=== PATIENT | male | born 1960 | race Two or more races ===

== ENCOUNTER → 2024-05-18 | Outpatient (CLI) | payer OTHER, SELFPAY ==
[2024-05-18 08:37] LABS: Basophils % (Auto) 1 % (0-2.5); Eosinophils # (Auto) 0.1 Thou/mm3 (0.0-0.5); Eosinophils % (Auto) 2 % (0-10); Hematocrit 40.8 % (41.0-53.0); Hemoglobin 13.2 g/dL (13.5-16.0); Immature Granulocytes % (Auto) 0 % (0-0); Immature Granulocytes Auto 0.02 Thou/mm3 (0.00-0.00); Lymphocytes # (Auto) 1.8 Thou/mm3 (1.0-4.8); Lymphocytes % (Auto) 28 % (10-50); Mean Corpuscular HGB Conc 32.4 g/dl (31.0-37.0); Mean Corpuscular Hemoglobin 26.6 pg (25.0-35.0); Mean Corpuscular Volume 82 fL (80-100); Monocytes # (Auto) 0.6 Thou/mm3 (0.0-0.8); Monocytes % (Auto) 9 % (0-12); Neutrophils % (Auto) 61 % (37-80); Nucleated Red Blood Cell % 0 /100 WBC (0); Platelet Count 176 Thou/mm3 (140-440); RDW Standard Deviation 44.9 fL (35.1-43.9); Red Blood Count 4.96 Miln/mm3 (4.50-5.90); White Blood Count 6.6 Thou/mm3 (3.8-10.6)
[2024-05-18 08:44] LABS: Glucose Estimated Average 197 mg/dL (80-131); Hemoglobin A1C 8.5 % Hgb (4.8-6.0)
[2024-05-18 08:54] LABS: Folate 18.19 ng/mL (>5.38); Vitamin B12 259 pg/mL (211-911); Vitamin D 25 Hydroxy Total 36.8 ng/mL (7.3-40.2)
[2024-05-18 08:56] LABS: Parathyroid Hormone Intact 56.9 pg/ml (18.5-88.0)
[2024-05-18 09:03] LABS: Alanine Aminotransferase 16 U/L (10-49); Albumin, Serum 4.4 gm/dL (3.4-4.8); Albumin/Globulin Ratio 1.8 (1.2-2.2); Alkaline Phosphatase 149 U/L (46-116); Anion Gap 5 (7-16); Aspartate Amino Transferase 10 U/L (0-34); BUN/Creatinine Ratio 16 Ratio (12-20); Bilirubin,Total 1.1 mg/dL (0.3-1.2); Blood Urea Nitrogen 16 mg/dL (9-23); Calcium 9.7 mg/dL (8.3-10.6); Calcium (Corrected) 9.7 mg/dL (8.5-10.1); Carbon Dioxide 27.4 mMol/L (20.0-31.0); Cardiac Risk Estimate 3.4 RATIO (4.0-6.7); Chloride 103 mMol/L (98-107); Cholesterol 128 mg/dL (132-200); Globulin 2.4 gm/dL (2.3-3.5); Glucose 238 mg/dL (74-106); HDL Cholesterol 38 mg/dL (40-60); LDL Cholesterol,Calculated 69 mg/dL (0-130); Osmolality,Calculated 279 (275-295); Potassium 4.6 mMol/L (3.4-5.1); Sodium 135 mMol/L (136-145); Thyroid Stimulating Hormone 0.85 uIU/mL (0.55-4.78); Total Protein 6.8 gm/dL (5.7-8.2); Triglycerides 103 mg/dL (30-150); eGFR > 60 See Note
[2024-05-18 09:12] LABS: Creatinine MALB Rnd Ur 114 mg/dL (30-125); Microalbumin Creat Ratio 40 mg/gCrea (<30); Microalbumin, Random Urine 46 mg/L (0-300)
[2024-05-18 09:40] LABS: Ferritin 3 ng/mL (10.5-307.3); Total Iron Binding Capacity 418 mcg/dL (250-425)
[2024-05-18 09:51] LABS: Iron 50 mcg/dL (65-175); Percent Iron Saturation 11 % (20-55); Unsaturated Iron Binding 368 (225-295)
== END | disposition home or self-care (01) ==
LOC: COPL 07:41
PROVIDERS: PCP Specialist; Referring Provider Specialist; Visit Provider Specialist
DX: E11.65 Type 2 diabetes mellitus with hyperglycemia (principal); Z98.84 Bariatric surgery status
CPT/HCPCS: 36415; 80053; 80061; 82043; 82306; 82570; 82607; 82728; 82746; 83036; 83540; 83550; 83970; 84443; 85025

== ENCOUNTER → 2024-09-06 | Outpatient (CLI) | payer OTHER, SELFPAY ==
[2024-09-06 11:38] LABS: Creatinine MALB Rnd Ur 44 mg/dL (30-125); Microalbumin Creat Ratio 77 mg/gCrea (<30); Microalbumin, Random Urine 34 mg/L (0-300)
[2024-09-06 11:40] LABS: Glucose Estimated Average 246 mg/dL (80-131); Hemoglobin A1C 10.2 % Hgb (4.8-6.0)
[2024-09-06 11:42] LABS: Alanine Aminotransferase 15 U/L (10-49); Albumin/Globulin Ratio 1.7 (1.2-2.2); Alkaline Phosphatase 152 U/L (46-116); Anion Gap 8 (7-16); Aspartate Amino Transferase 13 U/L (0-34); BUN/Creatinine Ratio 17 Ratio (12-20); Bilirubin,Total 0.5 mg/dL (0.3-1.2); Blood Urea Nitrogen 17 mg/dL (9-23); Calcium 9.7 mg/dL (8.3-10.6); Calcium (Corrected) 9.7 mg/dL (8.5-10.1); Carbon Dioxide 27.6 mMol/L (20.0-31.0); Cardiac Risk Estimate 3.6 RATIO (4.0-6.7); Chloride 106 mMol/L (98-107); Cholesterol 123 mg/dL (132-200); Globulin 2.4 gm/dL (2.3-3.5); Glucose 265 mg/dL (74-106); HDL Cholesterol 34 mg/dL (40-60); LDL Cholesterol,Calculated 57 mg/dL (0-130); Osmolality,Calculated 293 (275-295); Potassium 4.7 mMol/L (3.4-5.1); Sodium 142 mMol/L (136-145); Total Protein 6.4 gm/dL (5.7-8.2); Triglycerides 162 mg/dL (30-150); eGFR > 60 See Note
== END | disposition home or self-care (01) ==
LOC: COPL 10:12
PROVIDERS: PCP Specialist; Referring Provider Specialist; Visit Provider Specialist
DX: E11.65 Type 2 diabetes mellitus with hyperglycemia (principal); E78.2 Mixed hyperlipidemia
CPT/HCPCS: 36415; 80053; 80061; 82043; 82570; 83036

== ENCOUNTER → 2025-05-26 | Outpatient (CLI) | payer OTHER, SELFPAY ==
[2025-05-26 12:39] LABS: COVID-19 Antigen (In-House) Negative (Negative)
[2025-05-26 13:07] LABS: Influenza A Ag Negative; Influenza B Ag Negative
== END | disposition home or self-care (01) ==
LOC: COPL 10:30
PROVIDERS: PCP Specialist; Referring Provider Specialist; Visit Provider Specialist
DX: R05.9 Cough, unspecified (principal)
CPT/HCPCS: 87502; 87811

== ENCOUNTER → 2025-05-27 | Outpatient (CLI) | payer OTHER, SELFPAY ==
[2025-05-27 15:59] LABS: Coccid Serology, CF (UCD)* See Sep Rpt
[2025-05-27 16:36] LABS: Glucose Estimated Average 217 mg/dL (80-131); Hemoglobin A1C 9.2 % Hgb (4.8-6.0)
[2025-05-27 16:37] LABS: Alanine Aminotransferase 12 U/L (10-49); Albumin, Serum 4.8 gm/dL (3.4-4.8); Albumin/Globulin Ratio 2.3 (1.2-2.2); Alkaline Phosphatase 151 U/L (46-116); Anion Gap 8 (7-16); Aspartate Amino Transferase 19 U/L (0-34); BUN/Creatinine Ratio 18 Ratio (12-20); Bilirubin,Total 0.6 mg/dL (0.3-1.2); Blood Urea Nitrogen 18 mg/dL (9-23); Calcium 9.5 mg/dL (8.3-10.6); Calcium (Corrected) 9.5 mg/dL (8.5-10.1); Carbon Dioxide 29.5 mMol/L (20.0-31.0); Cardiac Risk Estimate 2.3 RATIO (4.0-6.7); Chloride 104 mMol/L (98-107); Cholesterol 74 mg/dL (132-200); Creatinine (Component) 1.0 mg/dL (0.6-1.3); Globulin 2.1 gm/dL (2.3-3.5); Glucose 204 mg/dL (74-106); HDL Cholesterol 32 mg/dL (40-60); LDL Cholesterol,Calculated 27 mg/dL (0-130); Osmolality,Calculated 289 (275-295); Potassium 4.6 mMol/L (3.4-5.1); Sodium 141 mMol/L (136-145); Total Protein 6.9 gm/dL (5.7-8.2); Triglycerides 77 mg/dL (30-150); eGFR > 60 See Note
[2025-05-27 16:37] LABS: Creatinine MALB Rnd Ur 56 mg/dL (30-125); Microalbumin Creat Ratio 59 mg/gCrea (<30); Microalbumin, Random Urine 33 mg/L (0-300)
== END | disposition home or self-care (01) ==
LOC: COPL 15:46
PROVIDERS: PCP Specialist; Referring Provider Specialist; Visit Provider Specialist
DX: E11.65 Type 2 diabetes mellitus with hyperglycemia (principal); E78.2 Mixed hyperlipidemia; J42 Unspecified chronic bronchitis
CPT/HCPCS: 36415; 80053; 80061; 82043; 82570; 83036; 86171

== ENCOUNTER → 2025-05-27 | Outpatient (CLI) | payer OTHER, SELFPAY ==
--- NOTE | 2025-05-27 09:19 | XR_ITS ---
EXAMINATION: PA lateral chest 2 views TECHNIQUE: Upright PA lateral chest 2 views Date and time: May 27, 2025, 0942 hours, comparison May 04, 2024 INDICATIONS: Cough and shortness of breath beginning 3 weeks ago. FINDINGS: Minor prominence left ventricle CABG Mild to moderate elevation right hemidiaphragm No pneumonia or pulmonary edema Prominent osteopenia IMPRESSION: No pneumonia or pulmonary edema
== END | disposition home or self-care (01) ==
LOC: CDIM 09:14
PROVIDERS: PCP Specialist; Referring Provider Specialist; Visit Provider Specialist
DX: J45.901 Unspecified asthma with (acute) exacerbation (principal)
CPT/HCPCS: 71046